=== PATIENT | female | born 1970 | race Caucasian/White ===

== ENCOUNTER 2020-06-23 07:51 | Emergency (ER) | payer MEDICAID ==
[~2020-06-23] VITALS: Ht 167.6 cm; Wt 66.0 kg
[~2020-06-23 07:51] MED LIST: FERR-43 PO
[2020-06-23] MEDS ORDERED: SODIUM CHLORIDE 0.9% 1,000 ML IV ONE (08:30)
[2020-06-23] MEDS ORDERED: KETOROLAC 30MG/ML VIAL IV ONE (08:45)
[2020-06-23 09:09] LABS: BASOPHILS % 0.7 % (0.0-2.0); EOSINOPHILS % 2.8 % (0.0-5.0); HEMATOCRIT. 39.3 % (36.0-48.0); HEMOGLOBIN. 13.1 g/dL (12.0-16.0); LYMPHOCYTES % 30.9 % (20.0-50.0); MEAN CORPUSCULAR VOLUME 86.7 fL (81.0-99.0); MEAN PLATELET VOLUME 9.8 fl (7.4-10.4); MONOCYTES % 11.4 % (2.0-8.0); NEUTROPHILS % 54.2 % (40.0-76.0); PLATELET 198 x1000/uL (130-400); RED BLOOD CELL COUNT 4.53 mill/uL (4.2-5.4); RED CELL DISTRIBUTION WIDTH 14.6 % (11.6-14.6)
[2020-06-23 09:15] LABS: CHLORIDE 108 mEq/L (98-107)
[2020-06-23 09:18] LABS: PROTHROMBIN TIME 10.5 sec (9.6-11.0)
[2020-06-23 09:20] LABS: HCG SCREEN NEGATIVE
[2020-06-23 11:29] LABS: CLARITY URINE CLEAR (CLEAR); COLOR URINE YELLOW (YELLOW); KETONES URINE NEGATIVE (NEGATIVE); LEUKOCYTE ESTERASE URINE NEGATIVE (NEGATIVE); NITRITE URINE NEGATIVE (NEGATIVE); OCCULT BLOOD URINE TRACE (NEGATIVE); PROTEIN URINE NEGATIVE (NEGATIVE); SPECIFIC GRAVITY URINE 1.012 (1.005-1.030); UROBILINOGEN URINE 0.2 E.U./dL (0.2-1.0)
[2020-06-23] MEDS ORDERED: METH-773 MT (12:36)
[2020-06-23] MEDS ORDERED: IOHEXOL-300 100 ML BOTTLE ONE (13:05)
[2020-06-23 13:46] VITALS: BP 124/69
== END 2020-06-23 13:46 | disposition home or self-care (01) ==
LOC: ER 08:05
DX: R07.89 Other chest pain (principal); M54.5 Low back pain
CPT/HCPCS: 36415; 71045; 71260; 74177; 80053; 81003; 83690; 84484; 84703; 85025; 85610; 93005; 96361; 96374; 99285; J1885; J7030; Q9967

== ENCOUNTER 2021-01-26 11:50 | Emergency (ER) | payer MEDICAID ==
[~2021-01-26] VITALS: Ht 152.4 cm; Wt 79.0 kg
[~2021-01-26 11:50] MED LIST changes: +METH-773 MT
[2021-01-26] MEDS ORDERED: ACETAMINOPHEN 325MG TABLET PO ONE (12:15)
[2021-01-26 12:32] LABS: EOSINOPHILS % 2.9 % (0.0-5.0); HEMATOCRIT. 39.3 % (36.0-48.0); HEMOGLOBIN. 12.4 g/dL (12.0-16.0); LYMPHOCYTES % 37.4 % (20.0-50.0); MEAN CORPUSCULAR HEMOGLOBIN 27.4 pg (28.0-32.0); MEAN CORPUSCULAR VOLUME 86.5 fL (81.0-99.0); MEAN PLATELET VOLUME 10.3 fl (7.4-10.4); MONOCYTES % 9.3 % (2.0-8.0); NEUTROPHILS % 49.4 % (40.0-76.0); PLATELET 201 x1000/uL (130-400); RED BLOOD CELL COUNT 4.54 mill/uL (4.2-5.4); RED CELL DISTRIBUTION WIDTH 14.7 % (11.6-14.6)
[2021-01-26 12:41] LABS: CHLORIDE 107 mEq/L (98-107)
[2021-01-26] MEDS ORDERED: METOCLOPRAMIDE HCL 10MG/2ML VIAL IV ONE (15:30)
[2021-01-26] MEDS ORDERED: KETOROLAC 30MG/ML VIAL IV ONE (15:30)
[2021-01-26] MEDS ORDERED: SODIUM CHLORIDE 0.9% 1,000 ML IV ONE (15:30)
[2021-01-26] MEDS ORDERED: IBUP-2028 MT (17:23)
[2021-01-26] MEDS ORDERED: TOPUD PO (17:23)
[2021-01-26 17:45] VITALS: BP 130/75
== END 2021-01-26 18:00 | disposition home or self-care (01) ==
LOC: ER 11:50
DX: R51.9 Headache, unspecified (principal); H53.8 Other visual disturbances; R03.0 Elevated blood-pressure reading, without diagnosis of hypertension; R94.31 Abnormal electrocardiogram [ECG] [EKG]; C18.9 Malignant neoplasm of colon, unspecified; Z98.890 Other specified postprocedural states; Z92.21 Personal history of antineoplastic chemotherapy
CPT/HCPCS: 36415; 70450; 71045; 80053; 85025; 93005; 96361; 96374; 96375; 99285; J1885; J2765; J7030